=== PATIENT | female | born 1955 | race Caucasian/White ===

== ENCOUNTER 2017-07-12 07:25 | Outpatient (CLI) | payer OTHER ==
[~2017-07-12 07:25] MED LIST: ACTONEL150 MG; ASPIR 8181 MG; FOLTX TABLET1 TAB; NEURONTIN300 MG
== END 2017-07-12 08:50 | disposition home or self-care (01) ==
LOC: LAB 07:25
DX: E56.8 Deficiency of other vitamins (principal); R73.02 Impaired glucose tolerance (oral); R00.2 Palpitations; R55 Syncope and collapse; E78.2 Mixed hyperlipidemia

== ENCOUNTER 2018-09-30 09:26 | Outpatient (CLI) | payer OTHER | END 2018-09-30 15:59 | disposition home or self-care (01) | LOC: SONOGRAMA 09:26 | DX: R16.0 Hepatomegaly, not elsewhere classified (principal) ==

== ENCOUNTER 2019-05-05 13:21 | Outpatient (CLI) | payer OTHER | END 2019-05-05 13:52 | disposition home or self-care (01) | LOC: SONOGRAMA 13:21 | DX: R10.2 Pelvic and perineal pain (principal) ==

== ENCOUNTER 2021-01-08 16:24 | Outpatient (CLI) | payer OTHER | END 2021-01-08 23:00 | disposition home or self-care (01) | LOC: LAB 16:24 | PROVIDERS: ATTEND Emergency Medicine Pediatric Emergency Medicine | DX: Z03.818 Encounter for observation for suspected exposure to other biological agents ruled out (principal); Z20.828 Contact with and (suspected) exposure to other viral communicable diseases ==

== ENCOUNTER 2021-02-01 15:15 | Outpatient (CLI) | payer OTHER | END 2021-02-01 15:29 | disposition home or self-care (01) | LOC: RAD 15:15 | PROVIDERS: ATTEND General Practice | DX: M51.37 Other intervertebral disc degeneration, lumbosacral region (principal); M54.5 Low back pain ==

== ENCOUNTER 2021-02-12 14:15 | Outpatient (CLI) | payer OTHER | END 2021-02-12 14:31 | disposition home or self-care (01) | LOC: SONOGRAMA 14:15 | PROVIDERS: ATTEND Specialist | DX: R10.2 Pelvic and perineal pain (principal) ==

== ENCOUNTER 2021-02-19 16:15 | Outpatient (CLI) | payer OTHER | END 2021-02-19 16:20 | disposition home or self-care (01) | LOC: PPH VACUNA 16:15 | PROVIDERS: ATTEND Emergency Medicine Pediatric Emergency Medicine | DX: Z23 Encounter for immunization (principal) ==

== ENCOUNTER 2021-09-13 08:00 | Outpatient (CLI) | payer OTHER | END 2021-09-13 08:30 | disposition home or self-care (01) | LOC: PPH VACUNA 08:00 | PROVIDERS: ATTEND Emergency Medicine Pediatric Emergency Medicine | DX: Z23 Encounter for immunization (principal) ==

== ENCOUNTER 2022-02-22 12:11 | Outpatient (CLI) | payer OTHER | END 2022-02-22 12:16 | disposition home or self-care (01) | LOC: PPH VACUNA 12:11 | PROVIDERS: ATTEND Emergency Medicine Pediatric Emergency Medicine | DX: Z23 Encounter for immunization (principal) ==

== ENCOUNTER 2022-09-27 08:33 | Outpatient (CLI) | payer OTHER | END 2022-09-27 08:34 | disposition home or self-care (01) | LOC: SONOGRAMA 08:33 | PROVIDERS: ATTEND Internal Medicine Gastroenterology | DX: R16.0 Hepatomegaly, not elsewhere classified (principal) ==